=== PATIENT | female | born 1995 | race Caucasian/White ===

== ENCOUNTER 2017-12-17 16:28 | Emergency (ER) | payer OTHER ==
[2017-12-17 18:01] VITALS: BP 139/83
--- NOTE | 2017-12-17 18:29 | UC ---
Throat Pain/Nasal Henry HPI - HPI Summary HPI Summary: 22-year-old female presents with 4 day history of sore throat. Associated with intermittent frontal headache, some mild nasal congestion, postnasal drip, and occasional dry nonproductive cough. Denies fever, chills, ear pain or drainage , dysphagia, chest pain, shortness of breath, abdominal pain, nausea, or vomiting. - History of Current Complaint Chief Complaint: UCGeneralIllness Stated Complaint: SORE THROAT,HEADACHE,NECK PAIN Time Seen by Provider: 12/17/17 18:15 Hx Obtained From: Patient Hx Last Menstrual Period: 11/17/17 Onset/Duration: Gradual Onset, Lasting Days - 4 Severity: Moderate Pain Intensity: 7 Cough: Nonproductive Associated Signs & Symptoms: Positive: Nasal Discharge. Negative: Dysphagia, Drooling, Wheezing, Hoarseness, Sinus Discomfort, Fever, Vomiting - Allergies/Home Medications Allergies/Adverse Reactions: Allergies Allergy/AdvReac Type Severity Reaction Status Date / Time No Known Allergies Allergy Verified 06/22/15 08:33 Home Medications: Home Medications Naproxen Sodium [Aleve] 400 mg PO ONCE 12/17/17 [History Confirmed 12/17/17] Norgestimate-Ethinyl Estradiol [Ortho-Cyclen 28 Tablet] 1 each PO DAILY [History Confirmed 12/17/17] PMH/Surg Hx/FS Hx/Imm Hx Previously Healthy: Yes - denies significant past medical history - Surgical History Surgical History: None - Family History Family History: Noncontributory - Social History Occupation: Student Lives: Dormitory/Roommates Alcohol Use: 3-4 DRINKS PER WEEK Alcohol Amount: 5 Substance Use Type: None Smoking Status (MU): Never Smoked Tobacco Review of Systems Constitutional: Negative Skin: Negative ENT: Sore Throat, Nasal Discharge Respiratory: Negative Cardiovascular: Negative Gastrointestinal: Negative Is Patient Immunocompromised?: No All Other Systems Reviewed And Are Negative: Yes Physical Exam Triage Information Reviewed: Yes Appearance: Well-Appearing, No Pain Distress, Well-Nourished Vital Signs: Initial Vital Signs Temp 98.4 F 12/17/17 17:54 Pulse 61 12/17/17 17:54 Resp 15 12/17/17 17:54 BP 139/83 12/17/17 17:54 Pulse Ox 100 12/17/17 17:54 Vital Signs Reviewed: Yes Eyes: Positive: Conjunctiva Clear. Negative: Discharge ENT: Positive: Hearing grossly normal, Pharyngeal erythema - With PND, Nasal congestion, TMs normal, Tonsillar swelling - 3+, Uvula midline. Negative: Nasal drainage, Tonsillar exudate, Trismus, Muffled voice, Hoarse voice, Sinus tenderness Neck: Positive: Supple, Nontender, Enlarged Nodes @ - Bilateral anterior cervical Respiratory: Positive: Lungs clear, Normal breath sounds, No respiratory distress Cardiovascular: Positive: RRR, No Murmur Abdomen Description: Positive: Nontender, No Organomegaly, Soft. Negative: Distended, Guarding Neurological: Positive: Alert Skin Exam: Normal Diagnostics - Laboratory Diagnostic Studies Completed/Ordered: Rapid strep negative Throat Pain/Nasal Course/Dx - Course Course Of Treatment: 22 year old female with 4 day of sore throat and URI symptoms. Exam revealed pharyngeal erythema and tonsillar edema without exudate. Rapid strep negative. Likely viral in origin. Recommend symptomatic treatment. Follow up with [facility] if symptoms persist. - Differential Dx/Diagnosis Differential Diagnosis/HQI/PQRI: Mononucleosis, Pharyngitis, Tonsillitis, URI Provider Diagnoses: Viral pharyngitis Discharge - Sign-Out/Discharge Documenting (check all that apply): Patient Departure All imaging exams completed and their final reports reviewed: No Studies - Discharge Plan Condition: Stable Disposition: HOME Patient Education Materials: Pharyngitis (ED) Referrals: No Primary Care Phys,NOPCP [Primary Care Provider] - Additional Instructions: The rapid strep test performed in the clinic today was negative. His symptoms are likely from a viral infection. Viral infections do not respond to antibiotics and typically resolve on their own over 7-10 days. Use salt water gargles several times a day for the sore throat. Take [id number] acetaminophen (Tylenol) or ibuprofen (Advil, Motrin) according to directions as needed for aches, pains, and fever. You may also use Cepacol lozenges or Chloraseptic spray for some temporary relief for sore throat. Follow up with the [facility] [place] in 7 days if symptoms persist. Your blood pressure was mildly elevated in the clinic today. It is recommended that you follow up with your primary care provider to have this rechecked. Seek immediate medical attention in the emergency room if you have persistent fever greater than 100.5 F despite taking acetaminophen or ibuprofen, you are unable to swallow, have difficulty breathing, or any worsening of symptoms. - Billing Disposition and Condition Condition: STABLE Disposition: Home - Attestation Statements Provider Attestation: Per institutional requirements, I have reviewed the chart, however, I was not consulted specifically or made aware of this patient by the midlevel provider. I did not personally evaluate, interact with , or disposition this patient.
== END 2017-12-17 18:47 | disposition home or self-care (01) ==
LOC: UCCORT 16:28
DX: J02.9 Acute pharyngitis, unspecified (principal)
CPT/HCPCS: 87651; 99211; G0463